=== PATIENT | female | born 1995 | race Caucasian/White ===

== ENCOUNTER 2018-04-13 15:39 | Emergency (ER) | payer OTHER, MEDICAID ==
[~2018-04-13 15:39] MED LIST: EPINEPHrine KIT (USE FOR EPIPEN) 1 MG/ML IM ONE; RANITIDINE 50 MG/2 ML VIAL ONE; methylPREDNISolone SOD SUCC 125 MG/2 ML VIAL ONE
[2018-04-13] MEDS ORDERED: ONDANSETRON 4 MG/2 ML VIAL ONE (15:45)
[2018-04-13] MEDS ORDERED: EPINEPHrine 1 MG/ML INJ IM ONE (15:48)
[2018-04-13] MEDS ORDERED: RANITIDINE 50 MG/2 ML VIAL IVP ONE (15:48)
[2018-04-13] MEDS ORDERED: methylPREDNISolone SOD SUCC 125 MG/2 ML VIAL IVP ONE (15:48)
[2018-04-13] MEDS ORDERED: NS 1,000 ML IV ONE (15:48)
[2018-04-13] MEDS ORDERED: ONDANSETRON 4 MG/2 ML VIAL IVP ONE (15:49)
--- NOTE | 2018-04-13 16:27 | EDPHY ---
H & P Stated Complaint: Pt. states was planting spiriva? plant aprox 1445,sudden sob and hives Time Seen by Provider: 04/13/18 15:48 HPI/ROS: A 1445 while planting Spiriva plants, the patient developed abrupt onset of large red"lumps itching and difficulty breathing. This patient is brought in by private vehicle by her father. She did not receive any Benadryl prior to arrival because she reports a allergy to Benadryl citing difficulty breathing after taking Benadryl in the past. She has not taken any other medications for her symptoms and she reports dyspnea with some difficulty talking due to her symptoms. Her father confirms this. She reports a sense of swelling in her throat. ROS: Constitutional: She felt well prior to this episode today. No lightheadedness. HEENT: No facial or lip swelling. No drooling. Pulmonary: She reports dyspnea but no respiratory distress. Cardiovascular: No heart palpitations or lightheadedness GI: She admits some nausea but denies any vomiting. No abdominal pain. Integumentary: The intensity of her red rashes diminishing was primarily on her trunk and arms per father. Neuro: No numbness tingling, headache or other complaints Complete review of symptoms otherwise negative. Source: Patient Exam Limitations: No limitations - Medical/Surgical History Hx Asthma: No Hx Chronic Respiratory Disease: No Hx Diabetes: No Hx Cardiac Disease: No Hx Renal Disease: No Hx Cirrhosis: No Hx Alcoholism: No Hx HIV/AIDS: No Hx Splenectomy or Spleen Trauma: No Other PMH: SEAS ALLERGIES. PARTIALLY VACCINATED ONLY, [facility] HAD RXN TO [facility]. ortho surgery - Family History Significant Family History: No pertinent family hx - Social History Smoking Status: Never smoked Alcohol Use: Rarely Drug Use: None - Physical Exam Exam: Vital signs initially are normal exception of hypertension and mild tachypnea to the mid 20s. General Appearance: Anxious appearing 23-year-old female Eyes: Pupils equal and round no pallor or injection. ENT, Mouth: Mucous membranes moist. Circumoral pallor-mild. The patient isn' t initially talking. Father's providing history. I appreciate no angioedema however, patient seems unwilling to completely open her mouth for a good exam initially. There is no drooling or stridor. Respiratory: There are no retractions, lungs are clear to auscultation. No wheezing. Cardiovascular: Regular rate and rhythm. Gastrointestinal: Abdomen is soft and nontender, no masses, bowel sounds normal. Neurological: GCS 15. No focal deficits. Skin: Warm and dry, patient has large erythematous papules on her back that holly with pressure. Minimal erythematous papules to arms. No other significant rashes noted. No petechia purpura. Musculoskeletal: Neck is supple nontender. Extremities are symmetrical, full range of motion. Psychiatric: Patient is anxious. Mood and affect are otherwise normal DIFFERENTIAL DIAGNOSIS: After history and physical exam differential diagnosis was considered for allergic urticaria, early anaphylaxis, potential mild airway edema, atopic dermatitis, anxiety Constitutional: Initial Vital Signs Heart Rate 82 04/13/18 15:39 Respiratory Rate 24 H 04/13/18 15:39 Blood Pressure 131/83 H 04/13/18 15:39 O2 Sat (%) 97 04/13/18 15:39 O2 Delivery Mode Room Air Allergies/Adverse Reactions: morphine Allergy (Intermediate, Verified 03/25/16 16:08) HALLUCINATIONS diphenhydramine [From Benadryl] Allergy (Verified 04/13/18 16:07) SEASONAL Allergy (Mild, Uncoded 03/25/16 16:08) ITCHY EYES/RUNNY NOSE narcotics Allergy (Uncoded 04/13/18 16:07) Home Medications: Medication Instructions Recorded Iron,Carbonyl [Iron Chews] 03/25/16 EPINEPHrine [Epipen 0.3 MG] 0.3 mg IM ONCE PRN #2 syr 04/13/18 Supplements 04/13/18 predniSONE 40 mg PO DAILY #10 tab 04/13/18 Medical Decision Making ED Course/Re-evaluation: Patient is placed on a monitor She is treated with epinephrine 0.3 mL 1:1000 IM IV ranitidine 50 mg day Solu-Medrol 125 IV 1 L normal saline bolus The patient had complete resolution of her symptoms over the course of the subsequent 40 min. She is able to speak normally, open her mouth completely with a Mallampati 1 airway, no wheezing, nausea resolved, rash resolved. Patient was observed for approximately 90 min prior to discharge home. Discussion: Patient presented with acute allergic reaction. I suspect that she had mild airway edema without angioedema and face or mouth that was triggering anxiety as well as the dermatologic manifestations of her allergic reaction. She cleared completely in terms of symptomatology and normalization of her respiratory rate with treatment. Will provide scripts for epinephrine pens, prednisone and encouraged her to continue and [id number] antihistamine as well as Pepcid for the next handful of days. Encouraged follow up with an outpatient border inspector as well to elucidate her particular allergens. The patient and her father understand the need to return to the emergency department should she have significant recurrence or worsening of her symptoms despite the treatment plan. Critical Care Time: 10 min total critical care time - Data Points Medications Given: Discontinued Medications Epinephrine HCl (Epinephrine) 0.3 mg IM EDNOW ONE Stop: 04/13/18 15:49 Last Admin: 04/13/18 15:43 Dose: 0.3 mg Sodium Chloride (Ns) 1,000 mls @ 0 mls/hr IV ONCE ONE; Wide Open PRN Reason: Protocol Stop: 04/13/18 15:49 Last Admin: 04/13/18 15:40 Dose: 1,000 mls Methylprednisolone Sodium Succinate (Solu-Medrol) 125 mg IVP EDNOW ONE Stop: 04/13/18 15:49 Last Admin: 04/13/18 16:20 Dose: 125 mg Ondansetron HCl (Zofran) 4 mg IVP EDNOW ONE Stop: 04/13/18 15:50 Last Admin: 04/13/18 16:21 Dose: 4 mg Prednisone (Prednisone) 60 mg PO EDNOW ONE Stop: 04/13/18 16:43 Last Admin: 04/13/18 17:01 Dose: Not Given Ranitidine HCl (Zantac) 50 mg IVP EDNOW ONE Stop: 04/13/18 15:49 Last Admin: 04/13/18 16:21 Dose: 50 mg Departure - Departure Disposition: Home, Routine, Self-Care Clinical Impression: Acute allergic reaction Qualifiers: Encounter type: initial encounter Qualified Code(s): T78.40XA - Allergy, unspecified, initial encounter Dyspnea Qualifiers: Dyspnea type: unspecified Qualified Code(s): R06.00 - Dyspnea, unspecified Condition: Good Instructions: General Allergic Reaction (ED) Additional Instructions: Diagnosis: Acute allergic reaction Plan: Continue AA antihistamine-loratadine or other Start Pepcid 40 mg [id number] daily for the next 3-5 days Prednisone 40 mg in the morning after breakfast daily if you have any ongoing allergic symptoms. EpiPen-try to bring 1 with you and a per [employer] bag at all times and have 1 in you're vehicle to use if he have a severe allergic reaction while you are not close to a medical facility Follow-up with Dr. Coats, border inspector for allergy testing. Return emergency department for any significant worsening despite the treatment plan Referrals: KAYLEE BANKS [Medical Doctor] - As per Instructions Prescriptions: EPINEPHrine [Epipen 0.3 MG] 0.3 mg IM ONCE PRN #2 syr PRN Reason: severe allergic reaction predniSONE 40 mg PO DAILY #10 tab
[2018-04-13] MEDS ORDERED: predniSONE 20 MG TAB PO ONE (16:42)
[2018-04-13 17:51] VITALS: BP 112/72
== END 2018-04-13 17:30 | disposition home or self-care (01) ==
LOC: CED 15:39
DX: R06.00 Dyspnea, unspecified (principal); T78.40XA Allergy, unspecified, initial encounter; E86.9 Volume depletion, unspecified
CPT/HCPCS: 96374; J0171; J2405; J2780; J2930